=== PATIENT | female | born 1960 ===

== ENCOUNTER 2025-04-05 13:17 | Outpatient (OUT) | payer BC, SELFPAY ==
--- NOTE | 2025-04-05 13:25 | XR_ITS ---
[facility] [place] [id number] Patient Name: JENNIFER RASCON MRN: [id number] date: 1960 Sex: F Assigned Patient Location: [facility] Current Patient Location: [facility] Accession/Order Number: [id number] Exam Date: 04/05/2025 14:36 Report Date: 04/05/2025 14:38 At the request of: YOKO VIERA DPM Procedure: XR foot LEILA min 3V Bilateral foot series 3 views each Reason for exam: Bilateral foot pain. COMPARISON: None. FINDINGS: Right foot demonstrate no focal soft tissue abnormality or acute bony process. Plantar spurring. Minimal degenerative change. No bony erosions. A similar finding is noted involving the left lobe with plantar spurring without acute bony process. XR/XR foot LEILA min 3V IMPRESSION: No acute bony process. Bilateral plantar spurring. Impression dictated by: Jonathon Payne Jr., DRichORich 04/05/2025 2:38 PM Dictation Location: [place] [address] Electronically authenticated by: [id number] Y Date: 04/05/2025 14:38
== END 2025-04-05 13:18 | disposition home or self-care (01) ==
LOC: RAD 13:22
PROVIDERS: Visit Provider Podiatrist Foot & Ankle Surgery
DX: M79.672 Pain in left foot (principal); M79.671 Pain in right foot; M77.32 Calcaneal spur, left foot; M77.31 Calcaneal spur, right foot
CPT/HCPCS: 73630